=== PATIENT | female | born 1980 | race African-American/Black ===

== ENCOUNTER 2016-08-25 22:36 | Emergency (ER) | payer MEDICAID ==
[~2016-08-25] VITALS: Ht 170.2 cm; Wt 73.0 kg
[2016-08-26] MEDS ORDERED: MAGNESIUM/ALUMINUM HYDROXIDE/SIMETHICONE 30ML UDC PO STA (04:20)
[2016-08-26] MEDS ORDERED: ONDANSETRON HCL 4MG/2ML VIAL IV STA (04:20)
[2016-08-26] MEDS ORDERED: MORPHINE SULFATE 4 MG/ML CPJ (NOT FOR IM USE) IV STA (04:20)
[2016-08-26] MEDS ORDERED: SODIUM CHLORIDE 0.9% 1,000 ML IV ONE (04:20)
[2016-08-26] MEDS ORDERED: VISCOUS LIDOCAINE 2% 15 ML UDC PO STA (04:20)
[2016-08-26] MEDS ORDERED: FAMOTIDINE 20MG/2ML VIAL IV ONE (04:30)
[2016-08-26 04:59] LABS: CLARITY URINE TURBID (CLEAR); COLOR URINE DARK YELLOW (YELLOW); GLUCOSE URINE NEGATIVE (NEGATIVE); KETONES URINE 3+ (NEGATIVE); LEUKOCYTE ESTERASE URINE 1+ (NEGATIVE); NITRITE URINE NEGATIVE (NEGATIVE); OCCULT BLOOD URINE 3+ (NEGATIVE); PROTEIN URINE 4+ (NEGATIVE); SPECIFIC GRAVITY URINE 1.039 (1.005-1.030)
[2016-08-26 05:43] LABS: BASOPHILS % 0.2 % (0.0-2.0); HEMATOCRIT. 41.9 % (36.0-48.0); HEMOGLOBIN. 14.3 g/dL (12.0-16.0); LYMPHOCYTES % 12.1 % (20.0-50.0); MEAN CORPUSCULAR HEMOGLOBIN 31.1 pg (28.0-32.0); MEAN CORPUSCULAR VOLUME 91.2 fL (81.0-99.0); MEAN PLATELET VOLUME 9.6 fl (7.4-10.4); MONOCYTES % 8.2 % (2.0-8.0); NEUTROPHILS % 79.5 % (40.0-76.0); PLATELET 253 x1000/uL (130-400); RED BLOOD CELL COUNT 4.59 mill/uL (4.2-5.4); RED CELL DISTRIBUTION WIDTH 12.9 % (11.6-14.6)
[2016-08-26 05:49] LABS: CARBON DIOXIDE 31 mEq/L (21-32); CHLORIDE 97 mEq/L (98-107)
[2016-08-26 06:30] VITALS: BP 102/59
== END 2016-08-26 06:30 | disposition home or self-care (01) ==
LOC: ER 22:36
DX: N39.0 Urinary tract infection, site not specified (principal); K21.9 Gastro-esophageal reflux disease without esophagitis; Z88.8 Allergy status to other drugs, medicaments and biological substances
CPT/HCPCS: 36415; 80053; 81001; 81025; 83690; 85025; 96361; 96374; 96375; 99284; J2270; J2405; J3490; J7030; Z7610

== ENCOUNTER 2016-11-29 09:12 | Emergency (ER) | payer MEDICAID ==
[~2016-11-29] VITALS: Ht 170.2 cm; Wt 73.0 kg
[2016-11-29] MEDS ORDERED: HYDROCODONE/APAP 7.5/325MG 1 TAB TABLET PO ONE (11:15)
[2016-11-29] MEDS ORDERED: KETOROLAC 60MG/2ML VIAL IM STA (15:04)
[2016-11-29 15:10] VITALS: BP 132/92
== END 2016-11-29 16:19 | disposition home or self-care (01) ==
LOC: ER 11:14
DX: S93.402A Sprain of unspecified ligament of left ankle, initial encounter (principal); F17.200 Nicotine dependence, unspecified, uncomplicated; W50.2XXA Accidental twist by another person, initial encounter; Y93.89 Activity, other specified; Y99.8 Other external cause status; Y92.89 Other specified places as the place of occurrence of the external cause
CPT/HCPCS: 29515; 73600; 81025; 96372; 99284; J1885; Z7610

== ENCOUNTER 2017-06-21 16:26 | Emergency (ER) | payer MEDICAID, OTHER ==
[~2017-06-21] VITALS: Ht 162.6 cm; Wt 62.0 kg
[2017-06-21 17:00] LABS: BASOPHILS % 0.2 % (0.0-2.0); HEMATOCRIT. 44.1 % (36.0-48.0); LYMPHOCYTES % 11.3 % (20.0-50.0); MEAN CORPUSCULAR HEMOGLOBIN 31.2 pg (28.0-32.0); MEAN CORPUSCULAR VOLUME 92.1 fL (81.0-99.0); MONOCYTES % 5.2 % (2.0-8.0); NEUTROPHILS % 83.3 % (40.0-76.0); PLATELET 282 x1000/uL (130-400); RED BLOOD CELL COUNT 4.79 mill/uL (4.2-5.4)
[2017-06-21 17:03] LABS: CHLORIDE 102 mEq/L (98-107)
[2017-06-21 17:06] LABS: INR 1.2; PROTHROMBIN TIME 12.5 sec (9.4-11.6)
[2017-06-21 17:40] LABS: HCG SCREEN NEGATIVE
[2017-06-21] MEDS ORDERED: ONDANSETRON HCL 4MG/2ML VIAL IV STA (21:23)
[2017-06-21] MEDS ORDERED: MORPHINE SULFATE 4 MG/ML CPJ (NOT FOR IM USE) IV STA (21:23)
[2017-06-21] MEDS ORDERED: PANTOPRAZOLE SODIUM 40 MG/VIAL IV STA (21:23)
[2017-06-21] MEDS ORDERED: SODIUM CHLORIDE 0.9% 1,000 ML IV ONE (21:23)
[2017-06-22] VITALS: BP 113/74
== END 2017-06-22 00:17 | disposition home or self-care (01) ==
LOC: ER 16:26
DX: K29.70 Gastritis, unspecified, without bleeding (principal); E86.0 Dehydration; F17.200 Nicotine dependence, unspecified, uncomplicated; R00.0 Tachycardia, unspecified; Z87.11 Personal history of peptic ulcer disease; Z88.3 Allergy status to other anti-infective agents
CPT/HCPCS: 36415; 71045; 80053; 83690; 84703; 85025; 85610; 96361; 96374; 96375; 99285; C9113; J2270; J2405; J7030; Z7610

== ENCOUNTER 2017-08-03 07:14 | Emergency (ER) | payer MEDICAID ==
[~2017-08-03] VITALS: Ht 172.7 cm; Wt 59.0 kg
[2017-08-03 08:48] LABS: CLARITY URINE CLOUDY (CLEAR); COLOR URINE DARK YELLOW (YELLOW); KETONES URINE 1+ (NEGATIVE); LEUKOCYTE ESTERASE URINE 2+ (NEGATIVE); NITRITE URINE NEGATIVE (NEGATIVE); OCCULT BLOOD URINE 3+ (NEGATIVE); PROTEIN URINE 3+ (NEGATIVE); SPECIFIC GRAVITY URINE 1.028 (1.005-1.030)
[2017-08-03] MEDS ORDERED: ONDANSETRON HCL 4MG/2ML VIAL IV STA (09:09)
[2017-08-03] MEDS ORDERED: DICYCLOMINE 10 MG/5 ML ORAL SYR PO STA (09:09)
[2017-08-03] MEDS ORDERED: VISCOUS LIDOCAINE 2% 15 ML UDC PO STA (09:09)
[2017-08-03] MEDS ORDERED: MAGNESIUM/ALUMINUM HYDROXIDE/SIMETHICONE 30ML UDC PO STA (09:09)
[2017-08-03] MEDS ORDERED: SODIUM CHLORIDE 0.9% 1,000 ML IV ONE (09:09)
[2017-08-03] MEDS ORDERED: FAMOTIDINE 20MG/2ML VIAL IV ONE (09:15)
[2017-08-03] MEDS ORDERED: CEFTRIAXONE 1 G PREMIX 50 ML IV ONE (09:15)
[2017-08-03 09:40] LABS: BASOPHILS % 0.3 % (0.0-2.0); HEMATOCRIT. 46.4 % (36.0-48.0); HEMOGLOBIN. 15.9 g/dL (12.0-16.0); LYMPHOCYTES % 19.9 % (20.0-50.0); MEAN CORPUSCULAR HEMOGLOBIN 31.2 pg (28.0-32.0); MEAN CORPUSCULAR VOLUME 91.4 fL (81.0-99.0); NEUTROPHILS % 71.8 % (40.0-76.0); PLATELET 270 x1000/uL (130-400); RED BLOOD CELL COUNT 5.08 mill/uL (4.2-5.4); RED CELL DISTRIBUTION WIDTH 13.2 % (11.6-14.6)
[2017-08-03 09:44] LABS: CHLORIDE 94 mEq/L (98-107)
[2017-08-03 09:48] LABS: INR 1.2; PROTHROMBIN TIME 12.9 sec (9.4-11.6)
[2017-08-03 12:40] VITALS: BP 115/61
== END 2017-08-03 12:47 | disposition home or self-care (01) ==
LOC: ER 08:17
DX: R10.13 Epigastric pain (principal); N39.0 Urinary tract infection, site not specified; A59.9 Trichomoniasis, unspecified; F12.10 Cannabis abuse, uncomplicated; D72.829 Elevated white blood cell count, unspecified; Z87.11 Personal history of peptic ulcer disease
CPT/HCPCS: 36415; 80053; 81003; 81025; 83690; 85025; 85610; 87086; 96365; 96375; 99284; J0696; J2405; J3490; J7030

== ENCOUNTER 2017-08-08 10:14 | Emergency (ER) | payer MEDICAID ==
[~2017-08-08] VITALS: Ht 165.1 cm; Wt 65.0 kg
[2017-08-08] MEDS ORDERED: CAPSAICIN 0.075% CREAM 60GM TOP STA (10:34)
[2017-08-08] MEDS ORDERED: SODIUM CHLORIDE 0.9% 1,000 ML IV ONE (10:34)
[2017-08-08] MEDS ORDERED: HALOPERIDOL LACTATE 5MG/ML VIAL IM ONE (10:45)
[2017-08-08 11:55] LABS: BASOPHILS % 0.4 % (0.0-2.0); EOSINOPHILS % 0.4 % (0.0-5.0); HEMATOCRIT. 41.3 % (36.0-48.0); LYMPHOCYTES % 16.2 % (20.0-50.0); MEAN CORPUSCULAR HEMOGLOBIN 31.4 pg (28.0-32.0); MEAN CORPUSCULAR VOLUME 92.9 fL (81.0-99.0); MEAN PLATELET VOLUME 9.3 fl (7.4-10.4); MONOCYTES % 4.6 % (2.0-8.0); NEUTROPHILS % 78.4 % (40.0-76.0); PLATELET 241 x1000/uL (130-400); RED BLOOD CELL COUNT 4.44 mill/uL (4.2-5.4); RED CELL DISTRIBUTION WIDTH 12.8 % (11.6-14.6)
[2017-08-08 11:59] LABS: INR 1.2
[2017-08-08 12:00] LABS: CHLORIDE 108 mEq/L (98-107)
[2017-08-08 12:25] LABS: HCG SCREEN NEGATIVE
[2017-08-08] MEDS ORDERED: METOCLOPRAMIDE HCL 10MG/2ML VIAL IV ONE (13:00)
[2017-08-08 15:00] VITALS: BP 122/63
== END 2017-08-08 15:32 | disposition home or self-care (01) ==
LOC: ER 10:39
DX: R10.13 Epigastric pain (principal); R11.2 Nausea with vomiting, unspecified; R51 Headache; R68.83 Chills (without fever); T40.7X5A Adverse effect of cannabis (derivatives), initial encounter; F12.10 Cannabis abuse, uncomplicated; Z88.8 Allergy status to other drugs, medicaments and biological substances; Y92.89 Other specified places as the place of occurrence of the external cause
CPT/HCPCS: 36415; 80053; 83605; 83690; 84703; 85025; 85610; 96361; 96372; 96374; 99285; J1630; J2765; J7030; Z7610

== ENCOUNTER 2017-12-02 17:27 | Emergency (ER) | payer MEDICAID, MEDICARE ==
[~2017-12-02] VITALS: Ht 170.2 cm; Wt 59.0 kg
[2017-12-02] MEDS ORDERED: KETOROLAC 60MG/2ML VIAL IM ONE (23:00)
[2017-12-02 23:11] VITALS: BP 123/91
[2017-12-03] MEDS ORDERED: ACETAMINOPHEN 500MG TABLET PO ONE (00:30)
== END 2017-12-03 01:27 | disposition home or self-care (01) ==
LOC: ER 17:27
DX: S62.002A Unspecified fracture of navicular [scaphoid] bone of left wrist, initial encounter for closed fracture (principal); M25.562 Pain in left knee; M25.552 Pain in left hip; M25.522 Pain in left elbow; F17.200 Nicotine dependence, unspecified, uncomplicated; Z87.19 Personal history of other diseases of the digestive system; V03.00XA Pedestrian on foot injured in collision with car, pick-up truck or van in nontraffic accident, initial encounter; Y93.89 Activity, other specified; Y92.480 Sidewalk as the place of occurrence of the external cause
CPT/HCPCS: 29125; 73080; 73110; 73502; 73562; 81025; 96372; 99284; J1885; Z7610